=== PATIENT | male | born 1990 | race Caucasian/White ===

== ENCOUNTER 2019-09-16 18:35 | Emergency (ER) | payer OTHER ==
[~2019-09-16] VITALS: Ht 177.8 cm; Wt 90.7 kg
[2019-09-16] MEDS ORDERED: IV NS 0.9% 1,000 ML IV ONE ×2 (19:00→21:30)
[2019-09-16] MEDS ORDERED: HYDROMORPHONE INJ 0.5 MG/0.5 ML SYRINGE IV ONE (19:00)
[2019-09-16] MEDS ORDERED: ONDANSETRON HCL/PF - ER 4 MG/2 ML VIAL IV ONE (19:00)
--- NOTE | 2019-09-16 19:00 | NUR ---
roberto came in to the er c/o left shoulder pain possible dislocation. On room air, breathing evenly and unlabored. connected to the monitor and pulse ox. kept comfortable, will continue to monitor accordingly.
[2019-09-16] MEDS ORDERED: HYDROMORPHONE 1 MG/1 ML DISP.SYRIN ONE (19:01)
[2019-09-16] MEDS ORDERED: ONDANSETRON HCL/PF 4 MG/2 ML VIAL ONE (19:01)
[2019-09-16] MEDS ORDERED: PROPOFOL 40 ML IV ONE (19:08)
[2019-09-16] MEDS ORDERED: PROPOFOL 200 MG/20 ML VIAL IV ONE (19:30)
--- NOTE | 2019-09-16 19:32 | NUR ---
report given to Riley TORRES for eileen.
--- NOTE | 2019-09-16 19:41 | NUR ---
RT CALLED FOR CONSCIOUS SEDATION.
--- NOTE | 2019-09-16 19:45 | NUR ---
Adithya beauchamp in EDM - 09/16/19 at 2054 by [facility] PROPOFOL 45MG ADMINISTERED IVP PER MD ORDER. WILL CONTINUE TO EVALUATION PATIENT.
--- NOTE | 2019-09-16 19:50 | NUR ---
RT AND MD AT BEDSIDE FOR CONSCIOUS SEDATION.
--- NOTE | 2019-09-16 19:57 | NUR ---
PROPOFOL 45MG ADMINISTERED IVP PER MD ORDER. WILL CONTINUE TO EVALUATION PATIENT.
--- NOTE | 2019-09-16 19:59 | NUR ---
SECOND PROPOFOL 45MG ADMINISTERED IVP PER MD ORDER. WILL CONTINUE TO EVALUATION PATIENT.
--- NOTE | 2019-09-16 20:00 | NUR ---
REDUCTION PROCEDURE FINISHED.
--- NOTE | 2019-09-16 20:00 | NUR ---
LEFT SHOULDER SLING/IMMOBILIZER IN PLACE.
--- NOTE | 2019-09-16 20:03 | NUR ---
PATIENT IS AWAKE. WILL CONTINUE TO STAY AT BEDSIDE TO MONITOR PATIENT.
--- NOTE | 2019-09-16 20:10 | NUR ---
XRAY AT BEDSIDE
--- NOTE | 2019-09-16 20:43 | NUR ---
Adithya beauchamp in EDM - 09/16/19 at 2054 by CALISTA RT AND MD AT BEDSIDE FOR CONSCIOUS SEDATION.
--- NOTE | 2019-09-16 21:17 | NUR ---
Patient discharged to home in stable condition. Written and verbal after care instructions given. Patient verbalizes understanding of instruction.
--- NOTE | 2019-09-16 21:17 | NUR ---
IV removed. Catheter intact and site benign. Pressure and 4x4 applied to site. No bleeding noted.
--- NOTE | 2019-09-16 21:24 | NUR ---
PATIENT'S GIRLFRIEND OUTSIDE TO PICK PATIENT UP.
--- NOTE | 2019-09-16 21:24 | NUR ---
Patient is ambulatory with a steady gait.
[2019-09-16 21:25] VITALS: BP 117/74
== END 2019-09-16 21:26 | disposition home or self-care (01) ==
LOC: ER 18:36
DX: S43.085A Other dislocation of left shoulder joint, initial encounter (principal); X58.XXXA Exposure to other specified factors, initial encounter; Y93.89 Activity, other specified; Y92.89 Other specified places as the place of occurrence of the external cause; Y99.8 Other external cause status
CPT/HCPCS: 23650; 73020; 73030; 96374; 96375; 99152; 99285; J1170; J2405 ×2; J2704; J7030 ×2; G0500